=== PATIENT | female | born 1995 | race Caucasian/White ===

== ENCOUNTER → 2021-09-16 | Outpatient (CLI) ==
[2021-09-16 16:17] LABS: MONOCYTES # (AUTO) 0.6 10^3/uL (0.0-1.0); MONOCYTES % (AUTO) 7 % (0-12)
[2021-09-16 16:19] LABS: BASOPHILS % (AUTO) 1 % (0-10); EOSINOPHILS # (AUTO) 0.1 10^3/uL (0.0-0.3); EOSINOPHILS % (AUTO) 1 % (0-10); HEMATOCRIT 37 % (35-52); HEMOGLOBIN 12.7 g/dL (11.5-16.0); LYMPHOCYTES # (AUTO) 1.8 10^3/uL (1.0-4.0); LYMPHOCYTES % (AUTO) 22 % (12-44); MEAN CORPUSCULAR HEMOGLOBIN 31 pg (25-34); MEAN CORPUSCULAR HGB CONC 34 g/dL (32-36); MEAN CORPUSCULAR VOLUME 90 fL (80-99); NEUTROPHILS # (AUTO) 5.9 10^3/uL (1.8-7.8); NEUTROPHILS % (AUTO) 69 % (42-75); PLATELET COUNT 243 10^3/uL (130-400); WHITE BLOOD COUNT 8.5 10^3/uL (4.3-11.0)
[2021-09-16 21:51] LABS: HEPATITIS C ANTIBODY C Non-Reactive (Non-Reactive)
== END ==
LOC: LABNPT 16:00
PROVIDERS: ATTEND Obstetrics & Gynecology
DX: Z36.89 Encounter for other specified antenatal screening (principal)
CPT/HCPCS: 84443; 85025; 86703; 86762; 86780; 86803; 86850; 86900; 86901; 87340

== ENCOUNTER 2022-04-03 03:55 | Inpatient (IN) | payer BC ==
[~2022-04-03] VITALS: Ht 157.5 cm; Wt 77.4 kg
[2022-04-03] VITALS (51 sets, daily range): BP systolic 109–192; BP diastolic 59–130
[2022-04-03] MEDS ORDERED: VALA500T7 PO (04:09)
[2022-04-03] MEDS ORDERED: PREN-142 PO (04:09)
[2022-04-03] MEDS ORDERED: D5 LR IV SOLUTION 1,000 ML IV ONE (04:39)
[2022-04-03 04:43] LABS: BILIRUBIN,URINE NEGATIVE (NEGATIVE); CLARITY,URINE SL CLOUDY; COLOR,URINE YELLOW; GLUCOSE, URINE (UA) NEGATIVE (NEGATIVE); KETONES,URINE NEGATIVE (NEGATIVE); LEUKOCYTE ESTERASE ,URINE NEGATIVE (NEGATIVE); NITRITE,URINE NEGATIVE (NEGATIVE); PH,URINE 5.5 (5-9); PROTEIN,URINE NEGATIVE (NEGATIVE)
[2022-04-03] MEDS ORDERED: D5 LR IV SOLUTION 1,000 ML IV SCH (04:45)
[2022-04-03 04:49] LABS: BACTERIA,URINE MODERATE /HPF; RBC,URINE 0-2 /HPF
[2022-04-03 04:49] LABS: BASOPHILS % (AUTO) 0 % (0-10); EOSINOPHILS % (AUTO) 0 % (0-10); HEMATOCRIT 34 % (35-52); HEMOGLOBIN 11.6 g/dL (11.5-16.0); LYMPHOCYTES # (AUTO) 1.5 10^3/uL (1.0-4.0); LYMPHOCYTES % (AUTO) 9 % (12-44); MEAN CORPUSCULAR HEMOGLOBIN 31 pg (25-34); MEAN CORPUSCULAR HGB CONC 34 g/dL (32-36); MEAN CORPUSCULAR VOLUME 89 fL (80-99); MEAN PLATELET VOLUME 10.9 fL (9.0-12.2); MONOCYTES # (AUTO) 0.9 10^3/uL (0.0-1.0); MONOCYTES % (AUTO) 5 % (0-12); NEUTROPHILS # (AUTO) 14.4 10^3/uL (1.8-7.8); NEUTROPHILS % (AUTO) 85 % (42-75); PLATELET COUNT 180 10^3/uL (130-400); WHITE BLOOD COUNT 17.1 10^3/uL (4.3-11.0)
[2022-04-03] MEDS ORDERED: fentaNYL 2 mcg/ml BUPIVA 0.125 100 ML ONE (04:53)
[2022-04-03 05:23] LABS: BAND NEUTROPHILS 4 %; BASOPHILS % (MANUAL) 0 %; EOSINOPHILS % (MANUAL) 0 %; LYMPHOCYTES % (MANUAL) 9 %; MONOCYTES % (MANUAL) 4 %; NEUTROPHILS % (MANUAL) 83 %; RBC MORPH NORMAL
[2022-04-03] MEDS: CATHETER FLUSH 10 ML SYR IV SCH ×2 (05:35→22:18)
[2022-04-03] MEDS ORDERED: LIDOCAINE PF 2% 5 ML (XYLOCAINE) VIAL ONE (05:57)
[2022-04-03] MEDS ORDERED: fentaNYL INJ 100 MCG/2 ML AMP ONE (05:57)
[2022-04-03] MEDS ORDERED: OXYTOCIN PRE-MIX DRIP 500 ML IV ONE (07:10)
--- NOTE | 2022-04-03 07:14 | History & Physical ---
History and Physical Date Seen by Provider: Apr 03, 2022 Time Seen by Provider: 07:12 This patient is a 26-year-old 1 female who presents with complaint of spontaneous rupture membranes at 2 PM yesterday. She reports that she began pedrito about 8 AM yesterday. She presented in the early hours of this morning with complaint of pressure and contractions. She was 4 to 5 cm she rapidly progressed to 8 cm and currently is 10 cm dilated.Patient's been uncomplicated. Her GBS culture was negative. Allergies are none Medications are vitamins Medical social and surgical histories are per the antepartum record HEENT exam is normal Neck is supple with no lymphadenopathy no thyromegaly Abdomen is gravid soft nontender nondistended Extremities show no clubbing or cyanosis. There is no Homans' sign. Pelvic exam shows a cervix is 10 cm dilated 100% effaced -1 to -2 station with vertex presentation and no palpable membranes. Assessment and plan Term with likely rupture membranes for almost 18 hours now but in advanced labor and with delivery eminent Term in labor Allergies and Home Medications Allergies Coded Allergies: No Known Drug Allergies (Unverified , 04/03/22) Patient Home Medication List Home Medication List Reviewed: Yes Vit No.124/Iron/FA ( Vitamin Tablet) 27 Mg Iron-800 Mcg Tablet, 1 EACH PO DAILY, (Reported) Entered as Reported by: NENA KNOTT on 04/03/22408 Last Action: New Order Valacyclovir HCl (Valacyclovir) 500 Mg Tablet, 500 MG PO DAILY, (Reported) Entered as Reported by: NENA KNOTT on 04/03/22408 Last Action: New Order TAE ARCE MD Apr 03, 2022 07:14
[2022-04-03] MEDS ORDERED: OXYTOCIN PRE-MIX DRIP 500 ML IV SCH ×2 (07:45→10:30)
[2022-04-03] MEDS ORDERED: LIDOCAINE 1% INJ 10 ML VIAL ONE ×2 (08:53→08:54)
[2022-04-03] MEDS ORDERED: ONDANSETRON 4 MG/2 ML (SDV) Z0FRAN IVP PRN (10:30)
[2022-04-03] MEDS ORDERED: TETANUS,DIPTH,PERTUSS P/F (BOOSTRIX) 0.5 ML VIAL IM ONE (10:30)
[2022-04-03] MEDS ORDERED: BENZOCAINE/MENTHOL (DERMOPLAST) 56 ML CAN TP PRN (10:30)
[2022-04-03] MEDS ORDERED: LIDOCAINE 1% INJ 10 ML VIAL INJ ONE (10:45)
[2022-04-03] MEDS: KETOROLAC 30 MG/ML VIAL IV SCH ×3 (11:06→22:18)
[2022-04-03] MEDS ORDERED: MEASLES,MUMPS,RUBELLA 1 EA INJ SC ONE (17:15)
[2022-04-03] MEDS ORDERED: WITCH HAZEL(TUCKS) 40 EA JAR TOP PRN (17:15)
[2022-04-03] MEDS ORDERED: DIBUCAINE 1% OINTMENT 30 GM TUBE TOP PRN (17:15)
[2022-04-03] MEDS: oxyCODONE/APAP 5/325MG (PERCOCET 5) TABLET PO PRN ×2 (17:20→23:48)
[2022-04-03] MEDS: DOCUSATE SODIUM 100 MG (COLACE) CAP PO SCH (20:40)
[2022-04-04] VITALS: BP 112/56
[2022-04-04 04:53] VITALS: BP 101/55
[2022-04-04] MEDS: KETOROLAC 30 MG/ML VIAL IV SCH (05:03)
--- NOTE | 2022-04-04 07:27 | Progress Note ---
Standard Progress Note Progress Notes/Assess & Plan Date Seen by a Provider: Apr 04, 2022 Time Seen by a Provider: 07:26 Progress/Assessment & Plan This patient is without complaint. She is ambulating, voiding, controlled. Vital Signs Date Time Temp Pulse Resp B/P (MAP) Pulse Ox O2 Delivery O2 Flow Rate FiO2 04/04/22 04:53 36.8 73 16 101/55 (70) 98 Room Air 04/04/22 00:00 36.4 86 18 112/56 (74) 98 Room Air 04/03/22 20:00 36.2 85 16 132/73 (92) 98 Room Air 04/03/22 16:55 37.0 104 18 124/76 (92) 99 Room Air 04/03/22 13:20 36.8 77 18 126/74 (91) 95 Room Air 04/03/22 10:08 36.1 85 18 131/67 (88) Room Air 04/03/22 09:52 36.1 90 18 124/61 (82) Room Air 04/03/22 09:45 87 18 125/66 (85) Room Air 04/03/22 09:41 35.9 77 18 128/59 (82) Room Air 04/03/22 09:32 192/93 (126) 04/03/22 09:25 75 18 156/100 (118) Room Air 04/03/22 09:21 95 18 160/130 (140) Room Air 04/03/22 09:12 88 18 130/71 (90) Room Air 04/03/22 09:06 81 18 126/73 (90) Room Air 04/03/22 09:03 80 18 130/69 (89) Room Air 04/03/22 08:57 83 18 127/69 (88) Room Air 04/03/22 08:51 75 18 122/67 (85) Room Air 04/03/22 08:47 81 18 120/72 (88) 98 Room Air 04/03/22 08:44 35.9 04/03/22 08:41 71 18 122/69 (86) 98 Room Air 04/03/22 08:36 80 18 114/82 (93) 98 Room Air 04/03/22 08:30 36.0 04/03/22 08:26 87 18 114/76 (89) 100 Room Air 04/03/22 08:21 80 18 126/65 (85) 99 Room Air 04/03/22 08:16 71 18 113/66 (82) 97 Room Air 04/03/22 08:07 69 18 115/68 (84) 98 Room Air 04/03/22 08:01 81 18 109/71 (84) 98 Room Air 04/03/22 07:57 81 18 111/68 (82) 98 Room Air 04/03/22 07:52 77 18 113/64 (80) 99 Room Air 04/03/22 07:46 76 18 109/65 (80) 98 Room Air 04/03/22 07:40 76 18 123/79 (94) 100 Room Air 04/03/22 07:36 91 18 125/78 (94) 98 Room Air 04/03/22 07:31 80 18 124/73 (90) 99 Room Air I & O 04/04/22 07:00 Intake Total 500 ml Balance 500 ml Vital signs are stable. Patient is afebrile. The abdomen is benign The fundus is firm below the umbilicus and nontender. Extremities show no clubbing or cyanosis. There is no Homans' sign. Pelvic exam is deferred Assessment and plan day #1 status post term vaginal livery at 38 weeks gestation patient is doing well and will have routine convalescent care TAE ARCE MD Apr 04, 2022 07:27
[2022-04-04 09:15] VITALS: BP 120/73
[2022-04-04] MEDS: DOCUSATE SODIUM 100 MG (COLACE) CAP PO SCH (09:20)
--- NOTE | 2022-04-04 09:52 | Anesthesia-Regional Post-Op ---
Regional Patient Condition Mental Status: Alert, Oriented x3 Circulation: Same as Pre-Op Headache: Absent Sensation: Full Recovery Motor Block: Absent Post Op Complications Complications None Follow Up Care/Instructions Patient Instructions None needed. Anesthesia/Patient Condition Patient is doing well, no complaints, stable vital signs, no apparent adverse anesthesia problems. No complications reported per nursing. TAVO LINDSEY CRNA Apr 04, 2022 09:52
[2022-04-04] MEDS ORDERED: IBUPROFEN 800 MG (MOTRIN) TAB PO SCH (11:00)
[2022-04-04 15:00] VITALS: BP 127/61
[2022-04-04] MEDS: oxyCODONE/APAP 5/325MG (PERCOCET 5) TABLET PO PRN (15:39)
--- NOTE | 2022-04-07 11:54 | OB Labor & Delivery Record ---
Labor & Delivery This patient delivered by term operative vaginal delivery of viable male with Apgars of 8 and 9 at 1 and 5 expected weight of 8 pounds 6 ounces time of 09 33 and a cord blood pH that was pending. The infant delivered over a midline episiotomy that was performed to facilitate delivery due to and after effective maternal expulsive effort at the +4 station and patient having given up any effort to push any further. Garces forceps were applied correct place ment was confirmed and then with gentle traction during the next 2 pushes the presenting part delivered the vertex over the perineum over the episiotomy and under epidural augmented with local anesthesia. The was bulb suctioned on delivery the head again on completion of delivery. Umbilical cord went pulses was doubly clamped the father cut the cord the baby was passed to mom's abdomen. Cord bloods were obtained placenta delivered spontaneously [facility]. Cervix rectum perineum and vagina were examined and found intact except for the midline episiotomy with a slight second-degree laceration extending up about 3 cm on the posterior vaginal wall. The entire complex was repaired with a single suture of 3-0 Vicryl repeat in the usual manner to good hemostasis good reapproximation Sponge needle counts were correct on completion of delivery and repair. Blood loss was around 250 cc. The patient remained in the LDR for recovery the baby remained with the mom TAE ARCE MD Apr 07, 2022 11:54
== END 2022-04-04 18:40 | disposition home or self-care (01) | DRG 807 ==
LOC: LDRP 03:55 → WSo 03:55 → LDRP 04:25 → WSo 04:25 → LDRP 11:17
PROVIDERS: ADMIT Obstetrics & Gynecology; ATTEND Obstetrics & Gynecology
PROC: 10D07Z3 Extraction of Products of Conception, Low Forceps, Via Natural or Artificial Opening (ICD-10-PCS; principal; 2022-04-03)
PROC: 0KQM0ZZ Repair Perineum Muscle, Open Approach (ICD-10-PCS; 2022-04-03)
PROC: 0W8NXZZ Division of Female Perineum, External Approach (ICD-10-PCS; 2022-04-03)
DX: O75.81 Maternal exhaustion complicating labor and delivery (principal); Z37.0 Single live birth; O70.1 Second degree perineal laceration during delivery; Z3A.38 38 weeks gestation of pregnancy; Z23 Encounter for immunization
CPT/HCPCS: 36415; 81000; 85007; 85027; 86780; 86850; 86900; 86901; 87088; 90707; 99212